=== PATIENT | female | born 1965 | race Caucasian/White ===

== ENCOUNTER 2017-07-06 22:53 | Emergency (ER) | payer MEDICAID ==
[~2017-07-06] VITALS: Ht 162.6 cm; Wt 61.0 kg
[2017-07-07 05:05] VITALS: BP 133/81
== END 2017-07-07 05:45 | disposition home or self-care (01) ==
LOC: ER 23:32
DX: K60.2 Anal fissure, unspecified (principal); S86.811A Strain of other muscle(s) and tendon(s) at lower leg level, right leg, initial encounter; E78.00 Pure hypercholesterolemia, unspecified; X58.XXXA Exposure to other specified factors, initial encounter; Y93.89 Activity, other specified; Y92.018 Other place in single-family (private) house as the place of occurrence of the external cause
CPT/HCPCS: 93971; 99284

== ENCOUNTER 2021-01-19 07:25 | Emergency (ER) | payer MEDICAID ==
[~2021-01-19] VITALS: Ht 157.5 cm; Wt 105.0 kg
[2021-01-19 07:31] VITALS: BP 133/79
[2021-01-19] MEDS ORDERED: NITROFURANTOIN 100MG M/M CAPSULE PO ONE (08:00)
[2021-01-19 08:37] LABS: CLARITY URINE TURBID (CLEAR); KETONES URINE TRACE (NEGATIVE); LEUKOCYTE ESTERASE URINE 2+ (NEGATIVE); NITRITE URINE POSITIVE (NEGATIVE); OCCULT BLOOD URINE 3+ (NEGATIVE); PROTEIN URINE 4+ (NEGATIVE); SPECIFIC GRAVITY URINE 1.039 (1.005-1.030)
[2021-01-19 08:38] LABS: COLOR URINE BROWN (YELLOW)
[2021-01-19] MEDS ORDERED: CIPR-263 MT (09:15)
== END 2021-01-19 09:42 | disposition home or self-care (01) ==
LOC: ER 07:30
DX: N30.01 Acute cystitis with hematuria (principal); R03.0 Elevated blood-pressure reading, without diagnosis of hypertension; E11.9 Type 2 diabetes mellitus without complications; E78.00 Pure hypercholesterolemia, unspecified; F64.0 Transsexualism; Z98.890 Other specified postprocedural states
CPT/HCPCS: 81003; 81025; 87077; 87186; 99283

== ENCOUNTER 2021-01-29 07:11 | Emergency (ER) | payer MEDICAID ==
[~2021-01-29] VITALS: Ht 157.5 cm; Wt 111.9 kg
[~2021-01-29 07:11] MED LIST: CIPR-263 MT
[2021-01-29] MEDS ORDERED: DIPHENHYDRAMINE 50MG CAPSULE PO ONE (08:00)
[2021-01-29] MEDS ORDERED: DIPH25CA83 PO (08:25)
[2021-01-29] MEDS ORDERED: HYDR120L TP (08:26)
[2021-01-29 08:43] VITALS: BP 143/71
[2021-01-29] MEDS ORDERED: HYDROCORTISONE 1% OINT 28.35GM TOP SCH (14:00)
== END 2021-01-29 09:11 | disposition home or self-care (01) ==
LOC: ER 07:11
DX: L30.9 Dermatitis, unspecified (principal); E78.00 Pure hypercholesterolemia, unspecified; Z98.890 Other specified postprocedural states; Z79.899 Other long term (current) drug therapy
CPT/HCPCS: 99282; Q0163